=== PATIENT | male | born 1940 | race Caucasian/White ===

== ENCOUNTER 2016-12-04 07:43 | Emergency (ER) | payer OTHER, BC ==
[~2016-12-04] VITALS: Ht 162.6 cm; Wt 90.0 kg
[~2016-12-04 07:43] MED LIST: ALEVE220 MG PO; AMLODIPINE BESY10 MG PO; ASPIR 8181 M1 PO; ATORVASTATIN CA40 MG PO; CELEBREX200 MG PO; FIBER500 MG PO; FLOMAX0.4 MG PO; HYDROCHLOROTHIA25 MG PO; HYDROCODON-ACE1 EAC7 PO; IRON325 MG PO; LIPITOR40 MG PO; LOVENOX40 MG/0.4 SC; MULTIPLE VITAM1 EACH PO; NAPROXEN500 MG PO; PERCOCET 5/31 TABLET PO; PREDNISONE10 MG PO; ULTRAM50 MG PO; VALACYCLOVIR1000 MG PO; ZOFRAN ODT4 MG PO
[2016-12-04] MEDS ORDERED: FLONASE16 G1 BOTH NARES (08:19)
[2016-12-04] MEDS ORDERED: SUDAFED 12-HOU120 MG PO (08:19)
[2016-12-04 08:27] VITALS: BP 143/53
== END 2016-12-04 08:28 | disposition home or self-care (01) ==
LOC: EME 07:43
DX: J01.90 Acute sinusitis, unspecified (principal)
CPT/HCPCS: 99281; 99283